=== PATIENT | female | born 1985 | race Caucasian/White ===

== ENCOUNTER 2020-09-28 11:26 | Emergency (ER) | payer BC ==
[2020-09-28 12:08] LABS: HEMOGLOBIN 14.3 gm/dl (12.3-15.3); RED BLOOD COUNT 4.44 M/UL (4.00-5.10); WHITE BLOOD COUNT 6.2 K/UL (4.5-11.0)
[2020-09-28 12:28] LABS: BUN/CREATININE RATIO 17 (0-10)
[2020-09-28] MEDS ORDERED: HYDROCODON-ACE1 EAC4 PO (16:42)
[2020-09-28] MEDS ORDERED: MEDROL DOSEPAK 24 MG PO (16:42)
== END 2020-09-28 17:00 | disposition home or self-care (01) ==
LOC: ER1 11:26
PROVIDERS: Emergency Medicine
DX: M51.87 Other intervertebral disc disorders, lumbosacral region (principal)
CPT/HCPCS: 72131; 80053; 81001; 85025; 85652; 86140; 96374; 96375; 99284; J1885; J2270; J2405

== ENCOUNTER → 2020-11-22 | Outpatient (CLI) | payer BC ==
[~2020-11-22] MED LIST: HYDROCODON-ACE1 EAC4 PO; MEDROL DOSEPAK 24 MG PO
== END ==
LOC: KOH-I 12:46
DX: M54.5 Low back pain (principal); M47.816 Spondylosis without myelopathy or radiculopathy, lumbar region; M51.26 Other intervertebral disc displacement, lumbar region; M47.817 Spondylosis without myelopathy or radiculopathy, lumbosacral region; M51.27 Other intervertebral disc displacement, lumbosacral region; M48.07 Spinal stenosis, lumbosacral region
CPT/HCPCS: 72148